=== PATIENT | male | born 1970 | race Caucasian/White ===

== ENCOUNTER → 2019-04-15 | Outpatient (CLI) | payer BC | LOC: GMA MATASK 17:04 | PROVIDERS: ATTEND Family Medicine | DX: R63.5 Abnormal weight gain (principal); I10 Essential (primary) hypertension ==

== ENCOUNTER → 2019-07-08 | Outpatient (CLI) | payer BC | LOC: GMA MATASK 14:20 | PROVIDERS: ATTEND Family Medicine | DX: N52.9 Male erectile dysfunction, unspecified (principal) ==

== ENCOUNTER → 2019-08-31 | Outpatient (CLI) | payer BC | LOC: NM 10:17 | PROVIDERS: ATTEND Family Medicine | DX: R00.2 Palpitations (principal) ==

== ENCOUNTER → 2019-09-27 | Outpatient (CLI) | payer BC | LOC: NM 08:49 | PROVIDERS: ATTEND Family Medicine | DX: R00.2 Palpitations (principal) ==

== ENCOUNTER → 2019-09-30 | Outpatient (CLI) | payer BC | DX: R00.2 Palpitations (principal) ==